=== PATIENT | male | born 1970 ===

== ENCOUNTER 2017-12-05 16:40 | Inpatient (IN) | payer OTHER ==
[2017-12-05 18:25] LABS: URINE BILIRUBIN NEGATIVE (NEGATIVE); URINE BLOOD NEGATIVE (NEGATIVE); URINE CLARITY Clear (Clear); URINE COLOR Yellow (YELLOW); URINE GLUCOSE (UA) NORMAL (Normal); URINE LEUKOCYTE ESTERASE NEG Leu/uL (Negative); URINE PROTEIN NEGATIVE (NEGATIVE); URINE UROBILINOGEN NORMAL mg/dL (0.2-1.0)
[2017-12-05] MEDS ORDERED: Sodium Chloride 0.9% 1,000 ML IV ONE (18:33)
--- NOTE | 2017-12-05 18:39 | C.PDOC ---
History Of Present Illness Patient is a 47 y/o male who presents to the ED with a complaint of epigastric and RUQ abdomial pain since yesterday. Patient admits to nausea but denies any vomiting, diarrhea, fever, chills, or eating/drinking. Patient has a Hx of gastritis with similar discomfort; denies any other medical problems at this time. Time Seen by Provider: 12/05/17 17:26 Chief Complaint (Nursing): Abdominal Pain History Per: Patient History/Exam Limitations: no limitations Onset/Duration Of Symptoms: Days (yesterday) Current Symptoms Are (Timing): Still Present Location Of Pain/Discomfort: RUQ, Epigastric Associated Symptoms: Nausea, Loss Of Appetite. denies: Fever, Chills, Vomiting , Diarrhea Recent travel outside of the [place]: No Past Medical History Reviewed: Historical Data, Nursing Documentation, Vital Signs Vital Signs: Last Vital Signs Temp 98.2 F 12/05/17 17:02 Pulse 64 12/05/17 17:02 Resp 16 12/05/17 17:02 BP 106/70 12/05/17 17:02 Pulse Ox 100 12/05/17 21:38 - Medical History PMH: Gastritis Surgical History: No Surg Hx Family History: States: No Known Family Hx - Social History Hx Tobacco Use: No Hx Alcohol Use: Yes Hx Substance Use: No - Immunization History Hx Tetanus Toxoid Vaccination: No Hx Influenza Vaccination: No Hx Pneumococcal Vaccination: No Review Of Systems Constitutional: Negative for: Fever, Chills Gastrointestinal: Positive for: Nausea, Abdominal Pain (RUQ and epigastric). Negative for: Vomiting, Diarrhea Physical Exam - Physical Exam Appears: Non-toxic, Other (uncomfortable) Skin: Warm, Diaphoretic (clammy), Pale Head: Atraumatic, Normacephalic Oral Mucosa: Moist Chest: Symmetrical Cardiovascular: Rhythm Regular, No Murmur Respiratory: Normal Breath Sounds, No Rales, No Rhonchi, No Wheezing Gastrointestinal/Abdominal: Bowel Sounds (quiet), Soft, Tenderness (epigastric and RUQ regions), Guarding, No Rebound Neurological/Psych: Oriented x3, Normal Speech, Normal Cognition ED Course And Treatment - Laboratory Results Result Diagrams: 12/05/17 18:51 12/05/17 18:51 Lab Interpretation: Abnormal (WBC 11.1 withleft shift) O2 Sat by Pulse Oximetry: 100 - CT Scan/US CT A/P Other Rad Studies (CT/US): Interpreted By Me, Read By Radiologist, Radiology Report Reviewed CT/US Interpretation: EXAM: CT Abdomen and Pelvis With Intravenous Contrast. EXAM DATE/TIME: 12/05/2017 6:33 PM. CLINICAL HISTORY: 47 years old, male; Pain ; Abdominal pain; Epigastric; Additional info: Abd pain. TECHNIQUE: Axial computed tomography images of the abdomen and pelvis with intravenous contrast. All CT. scans at this facility use one or more dose reduction techniques, viz. : automated exposure control;. ma/kV adjustment per patient size (including targeted exams where dose is matched to indication; i.e. head); or iterative reconstruction technique. Coronal and sagittal reformatted images were created and reviewed. CONTRAST: 100 mL of omnipaque 300 administered intravenously. COMPARISON: There are no prior studies for comparison. FINDINGS: Lung bases: Heart size is normal. Distal esophagus is distended with air. There is atelectasis at the. lung bases. ABDOMEN: Liver: There is fatty infiltration of the liver. Gallbladder and bile ducts: unremarkable. Pancreas: unremarkable. Spleen: unremarkable. Adrenals: unremarkable. Kidneys and ureters: Kidneys are unremarkable. There is mild ureterectasis. Stomach and bowel: Stomach is partially distended. Rotation rotation is normal. There is no. obstruction. Terminal ileum is unremarkable. Appendix is dilated. There is wall thickening. Appendiceal inflammation. Maximal diameter is approximately 10 mm. There is moderate stool in the. right colon. Left colon is collapsed. There is minimal diverticulosis. PELVIS: Appendix: See stomach and bowel. Bladder: Bladder is distended. Reproductive: Seminal vesicles and prostate are unremarkable. ABDOMEN and PELVIS: Intraperitoneal space: There is no free air or free fluid. Bones/joints: There are degenerative changes in the osseus structures. Soft tissues: unremarkable. Vasculature: Vascular structures are unremarkable. Lymph nodes: There is no pathologic adenopathy. IMPRESSION: Appendicitis; mild ureterectasis most likely due to bladder distention. Progress Note: CT a/p, blood work ordered. Zofran and protonix administered. - Physician Consult Information Time Consulting Physician Contacted: 21:41 Physician Contacted: Noris Gutierrez Outcome Of Conversation: Patient to be admitted to surgical service for appendicitis. Disposition - Disposition Disposition: HOSPITALIZED Disposition Time: 21:41 Condition: STABLE - POA Present On Arrival: None - Clinical Impression Clinical Impression: Appendicitis - Scribe Statement The provider has reviewed the documentation as recorded by the Scribe Karo Calvillo All medical record entries made by the Scribe were at my direction and personally dictated by me. I have reviewed the chart and agree that the record accurately reflects my personal performance of the history, physical exam, medical decision making, and the department course for this patient. I have also personally directed, reviewed, and agree with the discharge instructions and disposition.
[2017-12-05 18:55] LABS: BASO % 0.2 % (0.0-2.0); EOS % 0.3 % (0.0-4.0); HEMOGLOBIN 14.7 g/dL (12.0-18.0); LYMPH # 0.8 K/uL (1.0-4.3); MEAN CELL VOLUME 90.3 fL (80.0-94.0); MEAN CORPUSCULAR HEMOGLOBIN 30.3 pg (27.0-31.0); MEAN CORPUSCULAR HGB CONC 33.6 g/dL (33.0-37.0); MEAN PLATELET VOLUME 7.7 fL (7.2-11.7); MONO # 0.5 K/uL (0.0-0.8); MONO % 4.3 % (0.0-10.0); NEUT # 9.8 K/uL (1.8-7.0); NEUT % 88.2 % (50.0-75.0); PLATELET COUNT 259 K/uL (130-400); RBC 4.85 Mil/uL (4.40-5.90); RED CELL DISTRIBUTION WIDTH 13.2 % (11.5-14.5); WHITE BLOOD COUNT 11.1 K/uL (4.8-10.8)
[2017-12-05 19:08] LABS: ALB/GLOB RATIO 1.3 (1.0-2.1); ALBUMIN 4.2 g/dL (3.5-5.0); ALT/SGPT 69 U/L (21-72); AST/SGOT 36 U/L (17-59); BLOOD UREA NITROGEN 14 mg/dL (9-20); CALCIUM 8.5 mg/dl (8.6-10.4); GFR AFRICAN-AMERICAN > 60; GFR NON-AFRICAN AMERICAN > 60; LIPASE 103 U/L (23-300)
[2017-12-05] MEDS ORDERED: Sodium Chloride 0.9% 1,000 ML ONE (19:10)
[2017-12-05] MEDS ORDERED: Iohexol 240 (50 ml) ONE (19:10)
[2017-12-05 19:27] LABS: LYMPHOCYTE 4 % (20-40); MONOCYTE 3 % (0-10); NEUTROPHIL 93 % (50-75); PLATELET ESTIMATE NORMAL (NORMAL); TOTAL CELLS COUNTED 100
[2017-12-05] MEDS ORDERED: Iohexol 300 100 ML IJ ONE (20:05)
--- NOTE | 2017-12-05 21:27 | CT ---
EXAM: CT Abdomen and Pelvis With Intravenous Contrast EXAM DATE/TIME: 12/05/2017 6:33 PM CLINICAL HISTORY: 47 years old, male; Pain; Abdominal pain; Epigastric; Additional info: Abd pain TECHNIQUE: Axial computed tomography images of the abdomen and pelvis with intravenous contrast. All CT scans at this facility use one or more dose reduction techniques, viz.: automated exposure control; ma/kV adjustment per patient size (including targeted exams where dose is matched to indication; i.e. head); or iterative reconstruction technique. Coronal and sagittal reformatted images were created and reviewed. CONTRAST: 100 mL of omnipaque 300 administered intravenously. COMPARISON: There are no prior studies for comparison. FINDINGS: Lung bases: Heart size is normal. Distal esophagus is distended with air. There is atelectasis at the lung bases ABDOMEN: Liver: There is fatty infiltration of the liver. Gallbladder and bile ducts: unremarkable Pancreas: unremarkable Spleen: unremarkable Adrenals: unremarkable Kidneys and ureters: Kidneys are unremarkable. There is mild ureterectasis. Stomach and bowel: Stomach is partially distended. Rotation rotation is normal. There is no obstruction. Terminal ileum is unremarkable. Appendix is dilated. There is wall thickening. Appendiceal inflammation. Maximal diameter is approximately 10 mm. There is moderate stool in the right colon. Left colon is collapsed. There is minimal diverticulosis PELVIS: Appendix: See stomach and bowel Bladder: Bladder is distended. Reproductive: Seminal vesicles and prostate are unremarkable. ABDOMEN and PELVIS: Intraperitoneal space: There is no free air or free fluid. Bones/joints: There are degenerative changes in the osseus structures. Soft tissues: unremarkable Vasculature: Vascular structures are unremarkable. Lymph nodes: There is no pathologic adenopathy. IMPRESSION: Appendicitis; mild ureterectasis most likely due to bladder distention Additional nonemergent findings as described above.
--- NOTE | 2017-12-05 22:34 | CP.PCM.HP ---
History of Present Illness - History of Present Illness History of Present Illness: CC: burning abdominal pain HPI: Patient is a 47 y/o male who presents complaining of "burning" abdominal pain that started 1 day ago. He states the burning sensation was all over his abdomen and did not isolate to one spot. He reports associated diarrhea over the weekend but denied pain at that time. He states that today he felt subjective fever. He denies constipation or urinary symptoms. He states he only has pain to the right side when someone presses deep. He reports feeling relief of symptoms when he got the acid medication in the ER. PMH: gastritis PSH: endoscopy SociaL: denies etoh, tobacco, or drug use Present on Admission - Present on Admission Any Indicators Present on Admission: No Review of Systems - Review of Systems All systems: reviewed and no additional remarkable complaints except Review of Systems: unless stated in HPI Past Patient History - Infectious Disease Hx of Infectious Diseases: None - Past Social History Smoking Status: Never Smoked - GASTROINTESTINAL Hx Gastritis: Yes - PSYCHIATRIC Hx Substance Use: No - SURGICAL HISTORY Hx Surgeries: No - ANESTHESIA Hx Anesthesia: No Meds Allergies/Adverse Reactions: Allergies Allergy/AdvReac Type Severity Reaction Status Date / Time No Known Allergies Allergy Verified 12/05/17 17:02 Physical Exam - Constitutional Appears: Non-toxic, No Acute Distress - Head Exam Head Exam: ATRAUMATIC, NORMOCEPHALIC - Eye Exam Eye Exam: EOMI, Normal appearance - ENT Exam ENT Exam: Mucous Membranes Moist - Respiratory Exam Respiratory Exam: NORMAL BREATHING PATTERN. absent: Respiratory Distress - Cardiovascular Exam Cardiovascular Exam: REGULAR RHYTHM. absent: Tachycardia - GI/Abdominal Exam GI & Abdominal Exam: Soft. absent: Distended, Guarding, Rebound, Tenderness - Extremities Exam Extremities exam: Positive for: normal inspection. Negative for: calf tenderness - Neurological Exam Neurological exam: Alert, Oriented x3 - Psychiatric Exam Psychiatric exam: Normal Affect, Normal Mood - Skin Skin Exam: Dry, Normal Color, Warm Results - Vital Signs Recent Vital Signs: Last Vital Signs Temp 97.5 F L 12/05/17 21:55 Pulse 100 H 12/05/17 21:55 Resp 20 12/05/17 21:55 BP 116/75 12/05/17 21:55 Pulse Ox 97 12/05/17 21:55 - Labs Result Diagrams: 12/05/17 18:51 12/05/17 18:51 Labs: Laboratory Results - last 24 hr 12/05/17 12/05/17 12/05/17 18:16 18:51 18:51 WBC 11.1 H RBC 4.85 Hgb 14.7 Hct 43.8 MCV 90.3 MCH 30.3 MCHC 33.6 RDW 13.2 Plt Count 259 MPV 7.7 Neut % (Auto) 88.2 H Lymph % (Auto) 7.0 L [place] % (Auto) 4.3 Eos % (Auto) 0.3 Baso % (Auto) 0.2 Neut # (Auto) 9.8 H Lymph # (Auto) 0.8 L [place] # (Auto) 0.5 Eos # (Auto) 0.0 Baso # (Auto) 0.0 Neutrophils % (Manual) 93 H Lymphocytes % (Manual) 4 L Monocytes % (Manual) 3 Platelet Estimate Normal RBC Morphology Normal Sodium 141 Potassium 3.9 Chloride 101 Carbon Dioxide 28 Anion Gap 15 BUN 14 Creatinine 0.8 Est GFR ( Amer) > 60 Est GFR (Non-Af Amer) > 60 Random Glucose 162 H Calcium 8.5 L Total Bilirubin 0.8 AST 36 ALT 69 Alkaline Phosphatase 116 Total Protein 7.5 Albumin 4.2 Globulin 3.3 Albumin/Globulin Ratio 1.3 Lipase 103 Urine Color Yellow Urine Clarity Clear Urine pH 6.0 Ur Specific [place] 1.021 Urine Protein Negative Urine Glucose (UA) Normal Urine Ketones Trace Urine Blood Negative Urine Nitrate Negative Urine Bilirubin Negative Urine Urobilinogen Normal Ur Leukocyte Esterase Neg Urine WBC (Auto) < 1 Urine RBC (Auto) < 1 - Imaging and Cardiology CT scan - abdomen Status: Image reviewed by me, Report reviewed by me (appendix dilated but appendix filled with air ) Assessment & Plan - Assessment and Plan (Free Text) Assessment: 47 y/o male w/ burning abdominal pain, no resolved Plan: -CT scan possible early appendicitis but clinically patient benign -observe over night -NPO -serial exams -if RLQ abd pain evolves may consider OR intervention -d/w Dr. Matt SHIRLEYdaniela PGY3
[2017-12-05] MEDS: Lactated Ringer's 1,000 ML IV SCH (22:43)
[2017-12-06 08:07] LABS: BASO % 0.3 % (0.0-2.0); EOS # 0.1 K/uL (0.0-0.7); EOS % 0.6 % (0.0-4.0); HEMOGLOBIN 13.7 g/dL (12.0-18.0); LYMPH # 1.5 K/uL (1.0-4.3); LYMPH % 14.8 % (20.0-40.0); MEAN CORPUSCULAR HEMOGLOBIN 30.7 pg (27.0-31.0); MEAN CORPUSCULAR HGB CONC 34.8 g/dL (33.0-37.0); MEAN PLATELET VOLUME 7.8 fL (7.2-11.7); MONO # 0.8 K/uL (0.0-0.8); MONO % 7.6 % (0.0-10.0); NEUT # 7.8 K/uL (1.8-7.0); NEUT % 76.7 % (50.0-75.0); RBC 4.46 Mil/uL (4.40-5.90); RED CELL DISTRIBUTION WIDTH 13.2 % (11.5-14.5); WHITE BLOOD COUNT 10.2 K/uL (4.8-10.8)
[2017-12-06 08:08] LABS: MEAN CELL VOLUME 88.1 fL (80.0-94.0)
[2017-12-06] MEDS: Lactated Ringer's 1,000 ML IV SCH ×3 (09:30→21:01)
[2017-12-06] MEDS: Pantoprazole 40 mg EC Tab PO SCH (10:27)
[2017-12-06] MEDS ORDERED: Propofol 10 mg/ml Inj (20 ML) ONE (12:45)
[2017-12-06] MEDS ORDERED: Midazolam 2 MG/2 ML VIAL ONE (12:45)
[2017-12-06] MEDS ORDERED: ceFAZolin 1 gm FROZEN Premix 1 GM/50 ML ML IVPB ONE (12:49)
[2017-12-06] MEDS ORDERED: Succinylcholine Chloride 20 mg/ml Syr (5 ml) IV ONE (12:50)
[2017-12-06] MEDS ORDERED: HYDROmorphone 0.5 mg/0.5 ml ISec IVP PRN (14:07)
--- NOTE | 2017-12-06 14:09 | PCM.SURG1 ---
Surgeon's Initial Post Op Note - Surgeon's Notes Surgeon: Dr. Gutierrez Chair Spring Assembler: Dr. Fields PGY2 Type of Anesthesia: General Endo Pre-Operative Diagnosis: Acute Appendicitis Operative Findings: See operative dictation Post-Operative Diagnosis: Acute appendicitis Operation Performed: Laparoscopic Appendectomy Specimen/Specimens Removed: Appendix Estimated Blood Loss: EBL {In ML}: 10 Blood Products Given: N/A Drains Used: No Drains Post-Op Condition: Good Date of Surgery/Procedure: 12/06/17 Time of Surgery/Procedure: 14:09
[2017-12-06] MEDS ORDERED: Oxycodone/Acetaminophen 5/325 mg Tab PO PRN (14:10)
[2017-12-07 00:26] VITALS: RESP 20; O2SAT 96
[2017-12-07] MEDS: Lactated Ringer's 1,000 ML IV SCH (02:25)
[2017-12-07 04:22] VITALS: TEMP 98.6
[2017-12-07 08:02] VITALS: BP 99/62; PULSE 58
--- NOTE | 2017-12-07 09:39 | CP.PCM.DIS ---
Provider - Provider Date of Admission: 12/05/17 21:42 Attending physician: Noris Gutierrez MD Time Spent in preparation of Discharge (in minutes): 45 Diagnosis - Discharge Diagnosis (1) Appendicitis Status: Resolved Hospital Course - Lab Results Lab Results: Most Recent Lab Values WBC 10.2 K/uL (4.8-10.8) 12/06/17 07:40 RBC 4.46 Mil/uL (4.40-5.90) 12/06/17 07:40 Hgb 13.7 g/dL (12.0-18.0) 12/06/17 07:40 Hct 39.3 % (35.0-51.0) 12/06/17 07:40 MCV 88.1 fL (80.0-94.0) D 12/06/17 07:40 MCH 30.7 pg (27.0-31.0) 12/06/17 07:40 MCHC 34.8 g/dL (33.0-37.0) 12/06/17 07:40 RDW 13.2 % (11.5-14.5) 12/06/17 07:40 Plt Count 275 K/uL (130-400) 12/06/17 07:40 MPV 7.8 fL (7.2-11.7) 12/06/17 07:40 Neut % (Auto) 76.7 % (50.0-75.0) H 12/06/17 07:40 Lymph % (Auto) 14.8 % (20.0-40.0) L 12/06/17 07:40 [place] % (Auto) 7.6 % (0.0-10.0) 12/06/17 07:40 Eos % (Auto) 0.6 % (0.0-4.0) 12/06/17 07:40 Baso % (Auto) 0.3 % (0.0-2.0) 12/06/17 07:40 Neut # (Auto) 7.8 K/uL (1.8-7.0) H 12/06/17 07:40 Lymph # (Auto) 1.5 K/uL (1.0-4.3) 12/06/17 07:40 [place] # (Auto) 0.8 K/uL (0.0-0.8) 12/06/17 07:40 Eos # (Auto) 0.1 K/uL (0.0-0.7) 12/06/17 07:40 Baso # (Auto) 0.0 K/uL (0.0-0.2) 12/06/17 07:40 Neutrophils % (Manual) 93 % (50-75) H 12/05/17 18:51 Lymphocytes % (Manual) 4 % (20-40) L 12/05/17 18:51 Monocytes % (Manual) 3 % (0-10) 12/05/17 18:51 Platelet Estimate Normal (NORMAL) 12/05/17 18:51 RBC Morphology Normal 12/05/17 18:51 Sodium 141 mmol/L (132-148) 12/05/17 18:51 Potassium 3.9 mmol/L (3.6-5.2) 12/05/17 18:51 Chloride 101 mmol/L (98-107) 12/05/17 18:51 Carbon Dioxide 28 mmol/L (22-30) 12/05/17 18:51 Anion Gap 15 (10-20) 12/05/17 18:51 BUN 14 mg/dL (9-20) 12/05/17 18:51 Creatinine 0.8 mg/dL (0.8-1.5) 12/05/17 18:51 Est GFR ( Amer) > 60 12/05/17 18:51 Est GFR (Non-Af Amer) > 60 12/05/17 18:51 Random Glucose 162 mg/dL (75-110) H 12/05/17 18:51 Calcium 8.5 mg/dl (8.6-10.4) L 12/05/17 18:51 Total Bilirubin 0.8 mg/dL (0.2-1.3) 12/05/17 18:51 AST 36 U/L (17-59) 12/05/17 18:51 ALT 69 U/L (21-72) 12/05/17 18:51 Alkaline Phosphatase 116 U/L (38-126) 12/05/17 18:51 Total Protein 7.5 g/dL (6.3-8.3) 12/05/17 18:51 Albumin 4.2 g/dL (3.5-5.0) 12/05/17 18:51 Globulin 3.3 gm/dL (2.2-3.9) 12/05/17 18:51 Albumin/Globulin Ratio 1.3 (1.0-2.1) 12/05/17 18:51 Lipase 103 U/L (23-300) 12/05/17 18:51 Urine Color Yellow (YELLOW) 12/05/17 18:16 Urine Clarity Clear (Clear) 12/05/17 18:16 Urine pH 6.0 (5.0-8.0) 12/05/17 18:16 Ur Specific [place] 1.021 (1.003-1.030) 12/05/17 18:16 Urine Protein Negative mg/dL (NEGATIVE) 12/05/17 18:16 Urine Glucose (UA) Normal mg/dL (Normal) 12/05/17 18:16 Urine Ketones Trace mg/dL (NEGATIVE) 12/05/17 18:16 Urine Blood Negative (NEGATIVE) 12/05/17 18:16 Urine Nitrate Negative (NEGATIVE) 12/05/17 18:16 Urine Bilirubin Negative (NEGATIVE) 12/05/17 18:16 Urine Urobilinogen Normal mg/dL (0.2-1.0) 12/05/17 18:16 Ur Leukocyte Esterase Neg Norma/uL (Negative) 12/05/17 18:16 Urine WBC (Auto) < 1 /hpf (0-5) 12/05/17 18:16 Urine RBC (Auto) < 1 /hpf (0-3) 12/05/17 18:16 - Hospital Course Hospital Course: This 47M was admitted on 12/05/[address] scan confirmed an acute appendicitis, the patient was taken to the OR on 12/06/17 for a laparoscopic appendectomy. The surgery went well and the patient had an uneventful recovery. The patient is feeling well today and requests to be discharged. He is clinically improving and cleared fro DC from surgical standpoint. Discharge Exam - Head Exam Head Exam: ATRAUMATIC, NORMOCEPHALIC - Eye Exam Eye Exam: EOMI - Respiratory Exam Respiratory Exam: NORMAL BREATHING PATTERN, UNREMARKABLE - Cardiovascular Exam Cardiovascular Exam: +S1, +S2 - GI/Abdominal Exam GI & Abdominal Exam: Soft. absent: Distended, Firm, Guarding, Hernia, Rigid - Neurological Exam Neurological exam: Alert, Oriented x3 - Psychiatric Exam Psychiatric exam: Normal Affect, Normal Mood - Skin Skin Exam: Dry, Intact Discharge Plan - Follow Up Plan Condition: GOOD Disposition: HOME/ ROUTINE Instructions: Appendicitis in Adults, Appendectomy, Laparoscopic Surgery (DC) Additional Instructions: You may shower tomorrow however no soaking no hot tubs no swimming pools. No heavy lifting or core excersizes for a minimum of 4 weeks. If you develop any new or concerning symptoms please contact you PCP, Dr. Gutierrez or go to the ED. You have dissolvable stitches and surgical glue, do not pick at the glue it will eventually come off in the shower. For pain take motrin over the counter as directed on bottle, if it is not enough you may take tylenol in addition per the directions on the bottle.
[2017-12-07] MEDS: Pantoprazole 40 mg EC Tab PO SCH (10:25)
--- NOTE | 2017-12-08 03:22 | OP ---
PROCEDURE DATE: 12/06/2017 SURGEON: Noris Gutierrez MD [id number] ANALYST: Elio Fields DO ANESTHESIA: General. PREOPERATIVE DIAGNOSIS: Acute appendicitis. POSTOPERATIVE DIAGNOSIS: Acute appendicitis. PROCEDURE: Laparoscopic appendectomy. DESCRIPTION OF OPERATION: With the patient in the supine position under adequate general anesthesia, the abdomen was prepped and draped in the usual sterile manner. A Veress needle puncture was performed at the umbilicus with insufflation to 15 cm of water pressure of CO2, and a 10-mm laparoscopic trocar was inserted via an infraumbilical incision. Under direct vision, 5-mm and 12-mm trocars were inserted in the left lower quadrant. The appendix was identified, lying down medial to the cecum in the right lower quadrant. It appeared acutely inflamed. The appendix was grasped and gently freed from the surrounding small bowel loops, and the mesoappendix was dissected close to the cecum and divided with an Endo RASHARD stapler. A second pass of the Endo RASHARD stapler was used to divide the appendix. The appendix was placed in a specimen retrieval bag and removed via the 12-mm port site. The right lower quadrant was irrigated and suctioned. The pneumoperitoneum was released, and the trocars were removed. The umbilical and 12-mm port sites were closed with [id number] fascial sutures of 0 Vicryl. All incisions were closed with 4-0 Monocryl subcuticular sutures and Dermabond. The patient tolerated the procedure well and transferred to recovery room in stable condition. Estimated blood loss for the procedure was 10 mL. Noris Gutierrez MD
== END 2017-12-07 12:43 | disposition home or self-care (01) | DRG 883 ==
LOC: C.ER 16:40 → C.9E 21:42 → C.6T 22:00
PROVIDERS: ADMIT Specialist; ATTEND Specialist
PROC: 0DTJ4ZZ Resection of Appendix, Percutaneous Endoscopic Approach (ICD-10-PCS; principal; 2017-12-06 11:30)
DX: K35.80 Unspecified acute appendicitis (principal)